=== PATIENT | female | born 1945 | race Caucasian/White ===

== ENCOUNTER 2016-12-15 18:56 | Inpatient (IN) | payer MEDICARE ==
[2016-12-15] VITALS (8 sets, daily range): BP systolic 127–204; BP diastolic 67–124; PULSE 86–99; RESP 12–20; O2SAT 96–98
[~2016-12-15] VITALS: Ht 162.6 cm; Wt 86.7 kg
[~2016-12-15 18:56] MED LIST: ACET-171 PO; AMIO200T PO; ATRV10T PO; DIAZ5TAB3 PO; DOXE50CA3 PO; LISI-571 PO; METF500T4 PO; METO25TA6 PO; Warfarin per Pharmacist XX
--- NOTE | 2016-12-15 19:26 | ED.REPORT ---
HPI-Chest Pain 40 and Over Date of Service Dec 15, 2016 ED Provider: Marlene Claros DO Pt is a 71 year old female with a history of HTN, aortic valve replacement, and DM who presents to the ED complaining of chest pain onset 15:30 today. She c/o associated elevated blood pressure, throat pain, and neck pain. She denies any other symptoms. The pt denies current smoking, drugs, and alcohol use. Pt reports that she felt a pressure in her chest that radiated up to her throat and that it "felt like A-fib." Nursing Notes Stated Complaint: VERY HIGH BLOOD PRESSURE Chief Complaint: Chest Pain Nursing Notes Reviewed: Yes Allergies: Coded Allergies: Cephalosporins (Verified Allergy, Severe, ANAPHYLAXIS, SWELLING, 12/15/16) Satnam (Verified Allergy, Severe, FACIAL SWELLING, 12/15/16) NSAIDS (Non-Steroidal Anti-Inflamma (Verified Allergy, Severe, THROAT SWELLING, 12/15/16) Penicillins (Verified Allergy, Severe, ANAPHYLAXIS, SWELLING, 12/15/16) codeine (Verified Allergy, Severe, THROAT SWELLING, 12/15/16) TOLERATES FENTANYL fish derived (Verified Allergy, Severe, SEVERE NAUSEA, 12/15/16) hydrocodone (Verified Allergy, Severe, Anaphylaxis, 12/15/16) TOLERATES FENTANYL hydromorphone (Verified Allergy, Severe, THROAT SWELLING, 12/15/16) ibuprofen (Verified Allergy, Severe, THROAT SWELLING, 12/15/16) morphine (Verified Allergy, Severe, THROAT SWELLING, 12/15/16) TOLERATES FENTANYL ondansetron (Verified Allergy, Severe, Anaphylaxis, 11/01/15) shellfish derived (Verified Allergy, Severe, ANAPHYLAXIS, 12/15/16) strawberry (Verified Allergy, Severe, FACIAL SWELLING, 12/15/16) dextromethorphan (Verified Allergy, Unknown, SEE NOTE, 12/15/16) TOLD NOT TO TAKE IT IT IS A CLOSE RELATIVE TO CODEINE pentazocine (Verified Allergy, Unknown, 11/01/15) tramadol (Verified Adverse Reaction, Intermediate, ITCHING, 12/15/16) meperidine (Verified Adverse Reaction, Unknown, Rash,Itching,, 11/01/15) oxycodone (Verified Adverse Reaction, Unknown, Shortness of Breath, ) Scheduled Atenolol (Atenolol) 25 Mg Tablet 25 MG PO QAM Atorvastatin (Lipitor) 10 Mg Tab 10 MG PO HS Diazepam (Diazepam) 5 Mg Tablet 1.25-2.5 MG PO HS Lisinopril (Lisinopril) 5 Mg Tablet 5 MG PO HS Metformin (Metformin) 500 Mg Tablet 500 MG PO BIDWM Omeprazole (Omeprazole) 20 Mg Capsule.dr 20 MG PO QAM Scheduled PRN Acetaminophen (Acetaminophen) 500 Mg Tablet 1,000 MG PO TID PRN PRN For Pain Dextran 70/Hypromellose/Pf (Artificial Tears Drops) 1 Each Droperette 2 DROP BOTH_EYES Q2H PRN PRN DRY EYES General Time Seen by MD: 19:25 Chief Complaint Chest pain Hx Obtained From: Patient Arrived By: Walk-in Sudden in Onset?: No Onset Occurred: 1 - 4 hours ago Symptom Duration: Since onset Location: : Neck: Substernal Quality: Painful, Pressure Severity: Current: Moderate Severity: Maximum: Moderate Recent Healthcare: Recent doctor visit Similar Sx Previous: Yes Past Medical History Past Medical History 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 Ears / Nose / Throat: Reports: Throat pain Physical Exam Initial Vital Signs Vital Signs (First) Date Time Temp Pulse Resp B/P Pulse Ox O2 Delivery O2 Flow Rate FiO2 12/15/16 19:02 36.8 99 20 193/124 98 Room Air 20 Initial VS: Reviewed Head / Eyes: Atraumatic, Normocephalic Extremities: Vascular intact, Neuro intact Skin: Warm, Dry, No cyanosis Neurologic: Alert, Oriented, Nonfocal Psychiatric: Mood/affect normal, Behavior normal General/Constitutional: Awake, Alert, Cooperative Respiratory / Chest: Atraumatic, Breath sounds NL, Breath sounds = bilat Cardiovascular: Heart rate NL, Regular rhythm Systolic ejection murmur present. Premature ventricular contractions. Abdomen: Atraumatic, Soft, Non-tender Interpretation & Diagnostics Lab Results Interpretation Result Diagram: 12/15/16 1950 12/15/16 1950 Test 12/15/16 19:50 12/15/16 20:01 White Blood Count 7.7th/mm3 (3.8-10.1) Red Blood Count 4.79mil/mm3 (3.90-5.20) Hemoglobin 14.1g/dL (12.0-15.6) Hematocrit 42.2% (35.0-46.0) Mean Corpuscular Volume 88.1fL (81-100) Mean Corpuscular Hemoglobin 29.4pg (27.0-35.0) Mean Corpuscular Hemoglobin Concent 33.4% (32.0-37.0) Red Cell Distribution Width 13.7% (12.3-15.4) Platelet Count 198bil/L (150-400) Neutrophils (%) (Auto) 59.8% (40-74) Lymphocytes (%) (Auto) 31.8% (14-46) Monocytes (%) (Auto) 6.2% (4-12) Eosinophils (%) (Auto) 1.3% (0-5) Basophils (%) (Auto) 0.6% (0-3) Prothrombin Time 10.9sec (8.1-12.5) Prothromb Time International Ratio 1.02ratio Activated Partial Thromboplast Time 26.1sec (22.8-33.0) Sodium Level 140mEq/L (134-144) Potassium Level 3.7mEq/L (3.5-5.2) Chloride Level 100mEq/L (97-108) Carbon Dioxide Level 23mmol/L (18-29) Blood Urea Nitrogen 17mg/dL (8-27) Creatinine 0.71mg/dL (0.57-1.00) Estimat Glomerular Filtration Rate 117mL/min (>59) Glucose Level 134mg/dL (60-99) Lactic Acid Level 1.1mmol/L (0.4-2.0) Calcium Level 9.9mg/dL (8.5-10.1) Magnesium Level 1.6mg/dL (1.6-2.6) Total Bilirubin 0.6mg/dL (0.0-1.2) Aspartate Amino Transf (AST/SGOT) 26U/L (0-50) Alanine Aminotransferase (ALT/SGPT) 20U/L (0-32) Alkaline Phosphatase 123U/L (25-165) Troponin T < 0.010ug/L (0.0-0.011) Total Protein 8.6g/dL (6.4-8.4) Albumin 4.7g/dL (3.4-5.0) Procalcitonin 0.08ng/mL (0.00-0.08) Hold Knapp Top Tube Received (Received) Hold Urine Received (Received) ECG Interpretation ECG Interpretation: Sinus rhythm with a rate of 89. Prolonged MN interval. Inferior infarct, old. Time: 19:30 Interpreted by: ED physician ECG Interpretation: Sinus rhythm with rate of 95. Left ventricular hypertrophy. No ST elevation or depression. Old t waves. Time: 19:55 Interpreted by: ED physician X-Ray Chest Interpretation Chest Xray Interpretation: IMPRESSION: Left basilar infiltrate or atelectasis. Dictated by: Eris Reynoso M.D. on 12/15/2016 at 20:18 View: Portable, 1 view Interpretation / Wet Read by: Interpret - Radiologist Re-Eval/Medical Decision Med Decision/Clinical Course Delightful 71-year-old female presents with ischemic sounding chest pain. Associated symptoms include severe systolic and diastolic hypertension. No ripping or tearing pain. Symmetric blood pressures. She has a soft systolic ejection murmur at the aortic post. She has status post aortic valvuloplasty for bicuspid aortic valve. Chest x-ray shows atelectasis or infiltrate in the left base however there is no signs of dissection or mediastinal widening. We initiated topical nitrates and IV nitroglycerin as a drip. IV labetalol was given. Her blood pressure came down nicely and the pain seemed to resolve. She will be admitted inpatient basis with hypertensive emergency and ongoing chest pain. First troponin was negative. Serial EKGs did not show evidence of ischemia. Source of Hx: Old records Time of Eval: 20:41 Patient Status: Condition improved Re-Evaluation/Progress Note: Pt rechecked. She is feeling better with the medication provided and her chest pressure is gone. Informed pt of plan for admission. Pt undertands and agrees with plan for admission. All questions were answered. Consultation : Referral / Consult Name: Shree Cuadra MD Consulted With: Hospitalist Call Returned at: 20:58 Poultry Scientist: Will see patient, Agrees with eval, Agrees with plan, Accepts admit Counseled Regarding: Diagnosis, Lab results, Need for admission Discharge & Departure Primary Impression: Hypertensive emergency Additional Impression: Chest pain Chest pain type: unspecified Qualified Code: R07.9 - Chest pain, unspecified Disposition: ADMITTED TO HOSPITAL (ERASED) Discharge Condition All VS Reviewed: Yes Condition: Stable Referrals: Erasmo Eisenberg MD (PCP) Crit Care Except Billable Proc Time Spent: 135-164 minutes Services Performed: Patient management by me, Time spent at bedside, Reviewing test results, Reviewing imaging, Discussing patient care, Documentation in record, Time with fam/surrogate Scribe Attestation Portions of this note were transcribed by Kassidy Skelton. I, Dr. Rosario personally performed the history, physical exam and medical decision-making; I reviewed and confirmed the accuracy of the information in the transcribed note. Signed by: Marixa Stevens, 12/15/16 and 21:30. copies to: Erasmo Eisenberg MD, Todd P DO Dec 15, 2016 19:26 Kassidy Evans Dec 15, 2016 19:34
[2016-12-15 20:00] LABS: BASOPHILS % (AUTO) 0.6 % (0-3); EOSINOPHILS % (AUTO) 1.3 % (0-5); MONOCYTES % (AUTO) 6.2 % (4-12); Mean Corpuscular Hemoglobin 29.4 pg (27.0-35.0); Mean Corpuscular Volume 88.1 fL (81-100); NEUTROPHILS % (AUTO) 59.8 % (40-74); Platelet Count 198 bil/L (150-400)
[2016-12-15] MEDS: Nitroglycerin 2% 1 Gm Ointment TOPICAL ONE ×2 (20:00→21:54)
[2016-12-15] MEDS ORDERED: Labetalol 5 mg/mL 4 mL Inj IVPUSH ONE (20:00)
[2016-12-15] MEDS: Nitroglycerin 50 mg/250 mL D5W 50,000 MCG in IV Premix 1 EACH IV SCH (20:10)
[2016-12-15 20:16] LABS: INR 1.02 ratio
--- NOTE | 2016-12-15 20:21 | DRSVH ---
PROCEDURE: X-RAY CHEST ONE VIEW, PORTABLE ([id number]) INDICATIONS: CHEST PRESSURE TECHNIQUE: One view of the chest was acquired. COMPARISON: [facility], CR, CHEST 1 VIEW, 01/02/2015, 14:52. [facility], CR, CHEST 1 VIEW, 03/24/2016, 21:15. [facility], CR, XR CHEST 1VW (PORTABLE), 11/01/2015, 12:53. FINDINGS: Surgical changes and devices: Sternotomy. Lungs and pleura: Left basilar opacity may be infiltrate or atelectasis. No pleural effusions or pneu mothorax. Mediastinum: Mediastinal contours appear normal. Heart size is normal. Bones and chest wall: No suspicious bony lesions. Overlying soft tissues appear unremarkable. IMPRESSION: Left basilar infiltrate or atelectasis. Dictated by: Eris Reynoso M.D. on 12/15/2016 at 20:18 Approved by: Eris Reynoso M.D. on 12/15/2016 at 20:19
[2016-12-15 20:29] LABS: TROPONIN T < 0.010 ug/L (0.0-0.011)
[2016-12-15 20:33] LABS: Magnesium 1.6 mg/dL (1.6-2.6)
[2016-12-15] MEDS ORDERED: LISI-571 PO (21:20)
[2016-12-15] MEDS ORDERED: DEXT1DRO8 BOTH_EYES (21:20)
[2016-12-15] MEDS ORDERED: OMEP20CA11 PO (21:20)
[2016-12-15] MEDS ORDERED: ATEN25TA PO (21:20)
[2016-12-15] MEDS ORDERED: Polyethylene Glycol (PEG) 17 Gm Powder PO PRN (22:15)
[2016-12-15] MEDS ORDERED: Ondansetron 2 mg/mL 2 mL Inj IVPUSH PRN (22:15)
[2016-12-15] MEDS ORDERED: Alum-Mag Hydrox-Simeth 30 mL Suspension PO PRN (22:15)
[2016-12-15] MEDS ORDERED: Artificial Tears 15 mL Ophthalmic Solution BOTH_EYES PRN (22:25)
[2016-12-15 23:19] LABS: APPEARANCE,URINE CLEAR (CLEAR,HAZY); COLOR,URINE YELLOW (YELLOW); OCCULT BLOOD,URINE MODERATE (NEGATIVE); PH,URINE 5.5 (5.0-8.0); UROBILINOGEN,URINE NORMAL (NORMAL)
[2016-12-16] VITALS (14 sets, daily range): BP systolic 129–186; BP diastolic 71–105; PULSE 65–89; RESP 16–22; O2SAT 95–98
[2016-12-16] MEDS ORDERED: Nitroglycerin 2% 1 Gm Ointment TOPICAL SCH (00:10)
--- NOTE | 2016-12-16 00:26 | PCM.HPMED ---
Subjective Date of Service Dec 16, 2016 Primary Provider: Admitting Physician: Shree Cuadra MD Primary Care Physician: Erasmo Eisenberg MD Attending Physician: Shree Cuadra MD Chief Complaint: Chest pressure History of Present Illness: Pt is a 71 year old female with a history of HTN, aortic valve replacement, and DM who presents with chest pressure onset 15:30 today. She states the chest pressure is 2/10 substernal pressure and radiates to the left side of her neck, without radiation to the shoulder or axilla. She reports palpitations described as feeling her pulse in her throat. She reports right hand and left leg tingling , ongoing for 5 days. She denies coughing, wheezing, SOB, blurry vision, vision changes, focal weakness, confusion, or syncope. The pt denies current smoking, drugs, and alcohol use. Pt reports that this sensation felt like previous episodes of afib. In the ED, BP was 204/112, improved to 140s now. CBC was normal. CMP was normal other than glucose of 134. UA was negative. Lactic acid negative. Tropnin negative. Procalcitonin negative. 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 Nguyen in [place] Allergies Coded Allergies: Cephalosporins (Verified Allergy, Severe, ANAPHYLAXIS, SWELLING, 12/15/16) Satnam (Verified Allergy, Severe, FACIAL SWELLING, 12/15/16) NSAIDS (Non-Steroidal Anti-Inflamma (Verified Allergy, Severe, THROAT SWELLING, 12/15/16) Penicillins (Verified Allergy, Severe, ANAPHYLAXIS, SWELLING, 12/15/16) codeine (Verified Allergy, Severe, THROAT SWELLING, 12/15/16) TOLERATES FENTANYL fish derived (Verified Allergy, Severe, SEVERE NAUSEA, 12/15/16) hydrocodone (Verified Allergy, Severe, Anaphylaxis, 12/15/16) TOLERATES FENTANYL hydromorphone (Verified Allergy, Severe, THROAT SWELLING, 12/15/16) ibuprofen (Verified Allergy, Severe, THROAT SWELLING, 12/15/16) morphine (Verified Allergy, Severe, THROAT SWELLING, 12/15/16) TOLERATES FENTANYL ondansetron (Verified Allergy, Severe, Anaphylaxis, 12/15/16) pentazocine (Verified Allergy, Severe, 12/15/16) shellfish derived (Verified Allergy, Severe, ANAPHYLAXIS, 12/15/16) strawberry (Verified Allergy, Severe, FACIAL SWELLING, 12/15/16) dextromethorphan (Verified Allergy, Unknown, SEE NOTE, 12/15/16) TOLD NOT TO TAKE IT IT IS A CLOSE RELATIVE TO CODEINE meperidine (Verified Adverse Reaction, Severe, Shortness of Breath, ) oxycodone (Verified Adverse Reaction, Severe, Shortness of Breath, 12/15/16 ) tramadol (Verified Adverse Reaction, Intermediate, ITCHING, 12/15/16) Home Medications Acetaminophen 1000 mg TID PRN pain Atenolol 25 mg daily Atorvastatin 10 mg qhs Diazepam 1.25 - 2.5 mg qhs Lisinopril 5 mg qhs Metformin 500 mg BID Omeprazole 20 mg daily PMH Diabetes mellitus Hypertension Broken wrist Psorasis Iliolumbar ligament damage Plaque clot Surgical History Aortic valve replacement 10/22/2015 Cholecystectomy Back (2x) Family History Father: 5x CABG at 60, of complications Daughter: Parotid gland cancer No FHx of [place], stroke, DM Social History Hx Alcohol Use: No Hx Substance Use: No Hx Tobacco Use: Yes Smoking Status: Former Smoker Exam Vital Signs Vital Sign - Last Date Time Temp Pulse Resp B/P Pulse Ox O2 Delivery O2 Flow Rate FiO2 12/16/16 00:04 85 140/89 12/15/16 22:43 36.6 18 96 Room Air 12/15/16 19:02 20 Exam General: Alert, Oriented X3, Cooperative, No acute distress Head: Normocephalic, atraumatic. External ears normal. Eyes: PERRLA, EOMI. Anicteric sclerae. Mouth: Mouth normal, Mucous membranes moist/pink Neck: Neck supple with full range of motion. Chest& Lungs: Clear to auscultation bilaterally with no crackles, wheezes, or rhonchi. Cardiovascular: Regular rate/rhythm with occasional PVCs, Normal S1, Normal S2 , Systolic murmur present Abdomen: Non-tender, Non-distended, No masses, Normoactive bowel tones, Soft Musculoskeletal: Normal range of motion Extremities: No cyanosis/clubbing/edema bilaterally Neurological: Normal speech. Strength 4/4 bilateral upper and lower extremities , Cranial Nerves 2-12 Intact, Sensation Intact, Finger-Nose and Heel-Joshi normal Lab and Diagnostics Result Diagram: 12/15/16 1950 12/15/161949 Assessment & Plan Pt is a 71 year old female with a history of HTN, aortic valve replacement, and DM who presents with chest pressure. Admitted for hypertensive emergency. Hypertensive emergency, acute. Present on admission. - Pt presents with elevated BP of 204/112 and substernal chest pressure. She was started on a nitro drip and BP improved to 140/89. There do not appear to be any focal neurologic deficits at this time and she had no neurologic complaints, so TIA/CVA is unlikely. She has a history of snoring and has never had a sleep study. - Frequent BP checks - Regular neurologic checks - Nitro paste 1 inch - Labetalol 20 mg q15min PRN SBP >160 - Continue lisinopril 5 mg qhs - Continue atenolol 25 mg daily - Sleep study outpatient Chest pressure, acute. Present on admission. - Pt presented with substernal chest pressure radiating to left side of neck. Improved with hypertensive control but began to worsen after nitro drip was stopped. Initial EKG and troponin were normal - Repeat EKG - Trend troponin x3 - Aspirin 325 mg given. Continue aspirin 81 mg daily if pt does not react to initial dose (hx of NSAID allergy). Diabetes mellitus type 2 - BG 134 on admission. - Continue metformin 500 mg BID GERD - Protonix 20 mg daily Anxiety - Continue diazepam Other Medical Conditions Broken wrist Psorasis Iliolumbar ligament damage Plaque clot Resuscitation Status: CPR: Attempt Resuscitation Jus Henry Dec 16, 2016 00:26
[2016-12-16] MEDS: Heparin 5,000 Unit/mL Inj SUBQ SCH ×4 (00:47→22:04)
[2016-12-16 01:18] LABS: BASOPHILS % (AUTO) 0.5 % (0-3); EOSINOPHILS % (AUTO) 0.6 % (0-5); MONOCYTES % (AUTO) 6.4 % (4-12); Mean Corpuscular Hemoglobin 29.4 pg (27.0-35.0); Mean Corpuscular Volume 87.5 fL (81-100); NEUTROPHILS % (AUTO) 57.9 % (40-74); Platelet Count 172 bil/L (150-400)
[2016-12-16] MEDS: Pantoprazole 20 mg ER24 Tablet PO SCH (08:46)
[2016-12-16] MEDS: Labetalol 5 mg/mL 4 mL Inj IVPUSH PRN ×2 (11:06→22:04)
--- NOTE | 2016-12-16 13:52 | PCM.PNMED ---
Subjective Date of Service Dec 16, 2016 Subjective Kylee Duran is a71 year old woman with a history of hypertension, aortic valve replacement, and DM, non-insulin using, who presents with chest pressure. Under treatment for hypertensive emergency. Overnight: No acute events since admission. Today: The patient states she was very anxious about her heart and her aortic valve replacement. The patient denies any chest pain, headache, or dizziness. She does however state that she was dizzy when she walked to the bathroom. The remainder of ROS is negative except as noted above. Exam Vital Signs Vital Sign - Last Date Time Temp Pulse Resp B/P Pulse Ox O2 Delivery O2 Flow Rate FiO2 12/16/16 12:15 36.7 77 16 186/105 98 Room Air 12/16/16 11:28 20.00 Intake and Output 12/15/16 12/15/16 12/16/16 Cumulative From/Thru 15:00 23:00 07:00 12/15/16 19:02 - 12/16/16 05:33 Intake Total 350 ml 350 ml Output Total 600 ml 600 ml Balance -250 ml -250 ml Intake Oral 350 ml 350 ml Output Urine Total 600 ml 600 ml Exam General: Alert, Oriented X3, Cooperative, No acute distress Head: Normocephalic, atraumatic. External ears normal. Eyes: PERRLA, EOMI. Anicteric sclerae. Mouth: Mouth normal, Mucous membranes moist/pink Neck: Neck supple with full range of motion. Chest& Lungs: Clear to auscultation bilaterally with no crackles, wheezes, or rhonchi. Cardiovascular: Regular rate/rhythm with occasional PVCs, Normal S1, Normal S2 , Systolic murmur present Abdomen: Non-tender, Non-distended, No masses, Normoactive bowel tones, Soft Musculoskeletal: Normal range of motion Extremities: No cyanosis/clubbing/edema bilaterally Neurological: Normal speech. Strength 4/4 bilateral upper and lower extremities , Cranial Nerves 2-12 Intact, Sensation Intact IVs and Medications Medications Reviewed: Medications were reviewed in detail Lab and Diagnostics Result Diagram: 12/16/1610912/16/16109 X-Rays, CTs and MRIs X-RAY CHEST ONE VIEW, PORTABLE IMPRESSION: Left basilar infiltrate or atelectasis. Dictated by: Eris Reynoso M.D. on 12/15/2016 at 20:18 Assessment & Plan Kylee Duran is a 71 year old woman with a history of hypertension, aortic valve replacement, and DM, non-insulin using, who presents with chest pressure. Under treatment for hypertensive emergency. Hypertensive emergency, acute. Present on admission. - Pt presents with elevated BP of 204/112 and substernal chest pressure. She was started on a nitro drip and BP improved to 140/89. There do not appear to be any focal neurologic deficits at this time and she had no neurologic complaints, so TIA/CVA is unlikely. She has a history of snoring and has never had a sleep study. - Frequent BP checks - Regular neurologic checks - Nitro paste 1 inch. One time dose of Vasotec IV. - Labetalol 20 mg q15min PRN SBP >160 - Increase lisinopril 10 mg qhs - Increase atenolol 50 mg daily - Recommend sleep study outpatient Chest pressure, acute. Present on admission. - Pt presented with substernal chest pressure radiating to left side of neck. Improved with hypertensive control but began to worsen after nitro drip was stopped. Initial EKG and troponin were normal - troponin negative x3 - Aspirin 325 mg given, without adverse reaction with history of NSAID allergy. Diabetes mellitus type 2 - BG 134 on admission. - Continue metformin 500 mg BID GERD - Protonix 20 mg daily Anxiety - Continue diazepam Other Medical Conditions Broken wrist Psorasis Iliolumbar ligament damage Disposition: Anticipate patient can be discharged in 1-2 days once her blood pressure is better controlled. Resuscitation Status: CPR: Attempt Resuscitation Attending Statement Patient seen and examined with house staff. Agree with DOCUMENTATION. Jocelyn Pastrana DO Dec 16, 2016 13:12 Flavio Musa MD Dec 16, 2016 16:03
[2016-12-16] MEDS: Nitroglycerin 50 mg/250 mL D5W 50,000 MCG in IV Premix 1 EACH IV SCH (20:00)
[2016-12-17] VITALS (12 sets, daily range): BP systolic 129–177; BP diastolic 78–96; PULSE 69–125; RESP 16–18; O2SAT 94–98
[2016-12-17] MEDS: Heparin 5,000 Unit/mL Inj SUBQ SCH (08:30)
[2016-12-17] MEDS: Pantoprazole 20 mg ER24 Tablet PO SCH (09:07)
--- NOTE | 2016-12-17 13:54 | PCM.PNMED ---
Subjective Date of Service Dec 17, 2016 Subjective Kylee Duran is a71 year old woman with a history of hypertension, aortic valve replacement, and DM, non-insulin using, who presents with chest pressure. Under treatment for hypertensive emergency. Overnight: No acute events overnight. Today: The patient states she is feeling much better today except for some anxiety. She denies any chest pressure, weakness, headache, dizziness or nausea. The remainder of ROS is negative except as noted above. Exam Vital Signs Vital Sign - Last Date Time Temp Pulse Resp B/P Pulse Ox O2 Delivery O2 Flow Rate FiO2 12/17/16 12:45 37.0 72 16 129/81 95 Room Air 12/16/16 15:07 20.00 Intake and Output 12/16/16 12/16/16 12/17/16 Cumulative From/Thru 15:00 23:00 07:00 12/15/16 19:02 - 12/17/16 06:02 Intake Total 950 ml 537 ml 1837 ml Output Total 900 ml 600 ml 2100 ml Balance 50 ml -63 ml -263 ml Intake Oral 950 ml 537 ml 1837 ml Output Urine Total 900 ml 600 ml 2100 ml # Voids 1 1 # Bowel Movements 0 0 Exam General: Alert, Oriented X3, Cooperative, No acute distress Head: Normocephalic, atraumatic. External ears normal. Eyes: PERRLA, EOMI. Anicteric sclerae. Mouth: Mouth normal, Mucous membranes moist/pink Neck: Neck supple with full range of motion. Chest& Lungs: Clear to auscultation bilaterally with no crackles, wheezes, or rhonchi. Cardiovascular: Regular rate/rhythm with occasional PVCs, Normal S1, Normal S2 , Systolic murmur present Abdomen: Non-tender, Non-distended, No masses, Normoactive bowel tones, Soft Musculoskeletal: Normal range of motion Extremities: No cyanosis/clubbing/edema bilaterally Neurological: Normal speech. Strength 4/4 bilateral upper and lower extremities , Cranial Nerves 2-12 Intact, Sensation Intact Psychiatric: Anxious, appropriate affect. IVs and Medications Medications Reviewed: Medications were reviewed in detail Lab and Diagnostics Result Diagram: 12/16/1610912/16/16 011 X-Rays, CTs and MRIs X-RAY CHEST ONE VIEW, PORTABLE IMPRESSION: Left basilar infiltrate or atelectasis. Dictated by: Eris Reynoso M.D. on 12/15/2016 at 20:18 Assessment & Plan Kylee Duran is a 71 year old woman with a history of hypertension, aortic valve replacement, and DM, non-insulin using, who presents with chest pressure. Under treatment for hypertensive emergency. Hypertensive emergency, acute. Present on admission. Resolved. - Pt presents with elevated BP of 204/112 and substernal chest pressure. She was started on a nitro drip and BP improved to 140/89. There do not appear to be any focal neurologic deficits at this time and she had no neurologic complaints, so TIA/CVA is unlikely. She has a history of snoring and has never had a sleep study. - Labetalol 20 mg q15min PRN SBP >160 - Increase lisinopril 10 mg qhs, with an extra dose this morning. - Increase atenolol 50 mg daily - Recommend sleep study outpatient Chest pressure, acute. Present on admission. - Pt presented with substernal chest pressure radiating to left side of neck. Improved with hypertensive control but began to worsen after nitro drip was stopped. Initial EKG and troponin were normal - troponin negative x3 - Aspirin 325 mg given, without adverse reaction with history of NSAID allergy. Diabetes mellitus type 2 - BG 134 on admission. - Continue metformin 500 mg BID GERD - Protonix 20 mg daily Anxiety - Continue diazepam Other Medical Conditions Broken wrist Psorasis Iliolumbar ligament damage Disposition: The patient will likely be discharged home tomorrow. Resuscitation Status: CPR: Attempt Resuscitation Attending Statement Patient seen and examined with house staff. Agree with all attached documentation. Jocelyn Pastrana DO Dec 17, 2016 13:50 Flavio Musa MD Dec 20, 2016 07:38
[2016-12-17] MEDS ORDERED: LISI10TA PO (17:01)
[2016-12-17] MEDS ORDERED: ATEN25TA PO (17:01)
--- NOTE | 2016-12-17 17:12 | PCM.DIMED ---
AngleAzulJocelyn DO 12/17/16 1712: Discharge Instructions Date of Service Dec 17, 2016 Dates of Hospitalization Dec 15, 2016 at 21:56 Discharge Diagnosis Discharge Diagnosis Hypertensive emergency, acute. Present on admission. Resolved. Chest pressure, acute. Present on admission. Diabetes mellitus type 2 GERD Anxiety Other Medical Conditions Broken wrist Psorasis Iliolumbar ligament damage Medication Instructions Additional med instructions Please take 50 mg of Atenalol. (You can take 2 pills of your 25 mg until it runs out.) Please take 10 mg of Lisinopril twice a day. (You can take 2 pills of your Lisinopril in the morning and in the evening until it runs out.) Diet Discharge Diet: Low fat, Low Sodium, Heart Healthy, Diabetic Activity Discharge Activity: Limited until seen by PCP Call your provider Call your provider for: Chest pain, Weakness (unilateral) Patient Instructions Patient Instructions Please follow-up with your primary care doctor within 1 week. Please take her blood pressure measurement at home with her home blood pressure cuff at least once a day, but up to 3 times a day would be helpful within this first week. Please write your blood pressure measurements down. Please make sure to bring these to your visit with your primary care doctor as these will be very helpful to him. Please take her blood pressure medications as we discussed. If you have any recurrent severe headache, chest pressure, weakness of one arm, of one leg or any facial droop please call 911 immediately. Follow-up Provider: Erasmo Eisenberg MD Follow-up with PCP in: 1 week Flavio Musa MD 12/20/16 0745: Discharge Instructions Attending's Statement Patient seen and examined with house staff. Agree with all attached documentation. Jocelyn Pastrana DO Dec 17, 2016 17:12 Flavio Musa MD Dec 20, 2016 07:45
--- NOTE | 2016-12-17 17:15 | PCM.DC.MED ---
Discharge Summary Date of Service Dec 17, 2016 Dates of Hospitalization Date of Hospital Admission Dec 15, 2016 at 21:56 Date of Discharge: Dec 17, 2016 Providers: Admitting Physician: Flavio Musa MD Primary Care Physician: Erasmo Eisenberg MD Attending Physician: Flavio Musa MD Diagnosis at Time of Discharge Diagnosis at Time of Discharge Hypertensive emergency, acute. Present on admission. Resolved. Chest pressure, acute. Present on admission. Diabetes mellitus type 2 GERD Anxiety Other Medical Conditions Broken wrist Psorasis Iliolumbar ligament damage Procedures XRay, CTs & MRIs X-RAY CHEST ONE VIEW, PORTABLE IMPRESSION: Left basilar infiltrate or atelectasis. Dictated by: Eris Reynoso M.D. on 12/15/2016 at 20:[address] Henry's H and P: "Pt is a 71 year old female with a history of HTN , aortic valve replacement, and DM who presents with chest pressure onset 15:30 today. She states the chest pressure is 2/10 substernal pressure and radiates to the left side of her neck, without radiation to the shoulder or axilla. She reports palpitations described as feeling her pulse in her throat. She reports right hand and left leg tingling, ongoing for 5 days. She denies coughing, wheezing, SOB, blurry vision, vision changes, focal weakness, confusion, or syncope. The pt denies current smoking, drugs, and alcohol use. Pt reports that this sensation felt like previous episodes of afib. In the ED, BP was 204/112, improved to 140s now. CBC was normal. CMP was normal other than glucose of 134. UA was negative. Lactic acid negative. Tropnin negative. Procalcitonin negative. PCP: Erasmo Eisenberg [employer] - Dr. Nguyen in [place]" Hospital Course Kylee Duran is a 71 year old woman with a history of hypertension, aortic valve replacement, and DM, non-insulin using, who presents with chest pressure. Under treatment for hypertensive emergency. Hypertensive emergency, acute. Present on admission. Resolved. - Pt presents with elevated BP of 204/112 and substernal chest pressure. She was started on a nitro drip and BP improved to 140/89. There do not appear to be any focal neurologic deficits at this time and she had no neurologic complaints, so TIA/CVA is unlikely. She has a history of snoring and has never had a sleep study. - Labetalol 20 mg q15min PRN SBP >160 - Increased lisinopril 10 mg BID - Increased atenolol 50 mg daily - Recommend sleep study outpatient Chest pressure, acute. Present on admission. - Pt presented with substernal chest pressure radiating to left side of neck. Improved with hypertensive control but began to worsen after nitro drip was stopped. Initial EKG and troponin were normal - troponin negative x3 Diabetes mellitus type 2 - BG 134 on admission. - Continued metformin 500 mg BID GERD - Protonix 20 mg daily Anxiety - Continued diazepam Other Medical Conditions Broken wrist Psorasis Iliolumbar ligament damage Patient was deemed stable for discharge due to improvement in her blood pressure otherwise stable vital signs, resolution of symptoms, and good follow- up plan. Exam Vital Signs (Last) Date Time Temp Pulse Resp B/P Pulse Ox O2 Delivery O2 Flow Rate FiO2 12/17/16 16:45 36.6 83 16 159/87 98 Room Air 12/16/16 15:07 20.00 Exam General: Alert, Oriented X3, Cooperative, No acute distress Head: Normocephalic, atraumatic. External ears normal. Eyes: PERRLA, EOMI. Anicteric sclerae. Mouth: Mouth normal, Mucous membranes moist/pink Neck: Neck supple with full range of motion. Chest& Lungs: Clear to auscultation bilaterally with no crackles, wheezes, or rhonchi. Cardiovascular: Regular rate/rhythm with occasional PVCs, Normal S1, Normal S2 , Systolic murmur present Abdomen: Non-tender, Non-distended, No masses, Normoactive bowel tones, Soft Musculoskeletal: Normal range of motion Extremities: No cyanosis/clubbing/edema bilaterally Neurological: Normal speech. Strength 4/4 bilateral upper and lower extremities , Cranial Nerves 2-12 Intact, Sensation Intact Psychiatric: Anxious, appropriate affect. Test 12/15/16 19:50 12/15/16 20:01 12/16/16 01:10 12/16/16 08:23 Prothrombin Time 10.9sec (8.1-12.5) Prothromb Time International Ratio 1.02ratio Activated Partial Thromboplast Time 26.1sec (22.8-33.0) Lactic Acid Level 1.1mmol/L (0.4-2.0) Magnesium Level 1.6mg/dL (1.6-2.6) Procalcitonin 0.08ng/mL (0.00-0.08) Hold Knapp Top Tube Received (Received) Urine Color Yellow (YELLOW) Urine Appearance Clear (CLEAR,HAZY) Urine pH 5.5 (5.0-8.0) Urine Specific [place] 1.004 (1.003-1.035) Urine Protein 30mg/dL (NEG,TRACE) Urine Glucose (UA) Negativemg/dL (NEGATIVE) Urine Ketones Negativemg/dL (NEGATIVE) Urine Occult Blood Moderate (NEGATIVE) Urine Nitrite Negative (NEGATIVE) Urine Bilirubin Negative (NEGATIVE) Urine Urobilinogen Normalmg/dL (NORMAL) Urine Leukocyte Esterase Negative (NEGATIVE) Urine RBC 3-10/hpf (0-2) Urine WBC 0-5/hpf (0-5) Urine Epithelial Cells Occasional/hpf (NONE-MOD) Urine Crystals None seen (NONE SEEN) Urine Bacteria None/hpf (NONE-FEW) Urine Hyaline Casts None/lpf (NONE) Urine Granular Casts None seen (NONE SEEN) Urine Waxy Casts None seen (NONE SEEN) Urine Red Blood Cell Casts None seen (NONE SEEN) Urine White Blood Cell Casts None seen (NONE SEEN) Urine Mucus None seen (None Seen) Urine Trichomonas None seen (NONE SEEN) Urine Yeast None (NONE SEEN) Urinalysis Comment None Urine Culture Reflexed Not indicated Hold Urine Received (Received) White Blood Count 7.9th/mm3 (3.8-10.1) Red Blood Count 4.32mil/mm3 (3.90-5.20) Hemoglobin 12.7g/dL (12.0-15.6) Hematocrit 37.8% (35.0-46.0) Mean Corpuscular Volume 87.5fL (81-100) Mean Corpuscular Hemoglobin 29.4pg (27.0-35.0) Mean Corpuscular Hemoglobin Concent 33.6% (32.0-37.0) Red Cell Distribution Width 13.3% (12.3-15.4) Platelet Count 172bil/L (150-400) Neutrophils (%) (Auto) 57.9% (40-74) Lymphocytes (%) (Auto) 34.5% (14-46) Monocytes (%) (Auto) 6.4% (4-12) Eosinophils (%) (Auto) 0.6% (0-5) Basophils (%) (Auto) 0.5% (0-3) Sodium Level 141mEq/L (134-144) Potassium Level 3.7mEq/L (3.5-5.2) Chloride Level 100mEq/L (97-108) Carbon Dioxide Level 20mmol/L (18-29) Blood Urea Nitrogen 19mg/dL (8-27) Creatinine 0.76mg/dL (0.57-1.00) Estimat Glomerular Filtration Rate 108mL/min (>59) Glucose Level 171mg/dL (60-99) Calcium Level 9.2mg/dL (8.5-10.1) Total Bilirubin 0.7mg/dL (0.0-1.2) Aspartate Amino Transf (AST/SGOT) 18U/L (0-50) Alanine Aminotransferase (ALT/SGPT) 15U/L (0-32) Alkaline Phosphatase 95U/L (25-165) Total Protein 7.2g/dL (6.4-8.4) Albumin 4.1g/dL (3.4-5.0) Troponin T < 0.010ug/L (0.0-0.011) Discharge Medications Discharge Medications Atenolol (Atenolol) 25 Mg Tablet 50 MG PO DAILY Prescribed by: JOHN PASTRANA DO Atorvastatin (Lipitor) 10 Mg Tab 10 MG PO HS (Reported) Diazepam (Diazepam) 5 Mg Tablet 1.25-2.5 MG PO HS (Reported) Lisinopril (Lisinopril) 10 Mg Tablet 10 MG PO BID Prescribed by: JOHN PASTRANA DO Metformin (Metformin) 500 Mg Tablet 500 MG PO BIDWM (Reported) Omeprazole (Omeprazole) 20 Mg Capsule.dr 20 MG PO QAM (Reported) As needed Acetaminophen (Acetaminophen) 500 Mg Tablet 1,000 MG PO TID PRN PRN For Pain ( Reported) Dextran 70/Hypromellose/Pf (Artificial Tears Drops) 1 Each Droperette 2 DROP BOTH_EYES Q2H PRN PRN DRY EYES (Reported) Additional med instructions Please take 50 mg of Atenalol. (You can take 2 pills of your 25 mg until it runs out.) Please take 10 mg of Lisinopril twice a day. (You can take 2 pills of your Lisinopril in the morning and in the evening until it runs out.) Followup Plan Disposition: Home Discharge Diet: Low fat, Low Sodium, Heart Healthy, Diabetic Discharge Activity: Limited until seen by PCP Patient Instructions Please follow-up with your primary care doctor within 1 week. Please take her blood pressure measurement at home with her home blood pressure cuff at least once a day, but up to 3 times a day would be helpful within this first week. Please write your blood pressure measurements down. Please make sure to bring these to your visit with your primary care doctor as these will be very helpful to him. Please take her blood pressure medications as we discussed. If you have any recurrent severe headache, chest pressure, weakness of one arm, of one leg or any facial droop please call 911 immediately. Follow-up Provider: Erasmo Eisenberg MD Follow-up with PCP in: 1 week Time spent 60 minutes Attending Statement Patient seen and examined with house staff. Agree with all attached documentation. John Pastrana DO Dec 17, 2016 17:14 Flavio Musa MD Dec 20, 2016 07:46
== END 2016-12-17 17:40 | disposition home or self-care (01) | DRG 305 ==
LOC: SED 18:56 → PCC 21:56
PROVIDERS: ADMIT Hospitalist; ATTEND Hospitalist
DX: I16.0 Hypertensive urgency (principal); Z95.2 Presence of prosthetic heart valve; Z79.84 Long term (current) use of oral hypoglycemic drugs; Z87.891 Personal history of nicotine dependence; R07.9 Chest pain, unspecified; E11.9 Type 2 diabetes mellitus without complications; K21.9 Gastro-esophageal reflux disease without esophagitis; F41.9 Anxiety disorder, unspecified